=== PATIENT | male | born 1945 | race Caucasian/White ===

== ENCOUNTER 2016-12-08 05:47 | Inpatient (IN) | payer OTHER ==
--- NOTE | 2016-12-08 06:28 | EDM.PDOC ---
ED HPI GENERAL MEDICAL PROBLEM - General Chief Complaint: General Stated Complaint: ILL Time Seen by Provider: 12/08/16 06:21 - History of Present Illness INITIAL COMMENTS - FREE TEXT/NARRATIVE: HISTORY AND PHYSICAL: History of present illness: Patient is 71-year-old white male with history of coronary artery disease including multiple cardiac stents who presents with a concern of generalized weakness or last several days he's had decreased appetite denies nausea vomiting diarrhea denies nausea denies shortness of breath chest pain palpitations complains of halitosis that she noted 1 day. Review of systems: As per history of present illness and below otherwise all systems reviewed and negative. Past medical history: As per history of present illness and as reviewed below otherwise noncontributory. Surgical history: As per history of present illness and as reviewed below otherwise noncontributory. Social history: No reported history of drug or alcohol abuse. Family history: As per history of present illness and as reviewed below otherwise noncontributory. Physical exam: HEENT: Atraumatic, normocephalic, pupils reactive, negative for conjunctival pallor or scleral icterus, mucous membranes dry, throat clear, neck supple, nontender, trachea midline. Lungs: Clear to auscultation, breath sounds equal bilaterally, chest nontender. Heart: S1S2, regular, negative for clicks, rubs, or JVD. Abdomen: Soft, nondistended, nontender. Negative for masses or hepatosplenomegaly. Negative for costovertebral tenderness. Pelvis: Stable nontender. Genitourinary: Deferred. Rectal: Deferred. Extremities: Atraumatic, negative for cords or calf pain. Neurovascular unremarkable. Neuro: Awake, alert, oriented. Cranial nerves II through XII unremarkable. Cerebellum unremarkable. Motor and sensory unremarkable throughout. Exam nonfocal. Diagnostics: CBC CMP troponin UA ABG ammonia chest x-ray EKG Therapeutics: Normal saline monitor Impression: #1 generalized weakness #2 history coronary artery disease #3 generalized weakness Definitive disposition and diagnosis as appropriate pending reevaluation and review of above. - Related Data Allergies Allergy/AdvReac Type Severity Reaction Status Date / Time Penicillins Allergy Cannot Verified 12/08/16 05:52 Remember Home Meds: Home Meds Aspirin [[place] Aspirin] 1 tab PO DAILY 07/06/14 [History] Atenolol 1 tab PO DAILY 07/06/14 [History] Chlorthalidone 1 tab PO DAILY 07/06/14 [History] Ramipril [Altace] 1 tab PO DAILY 07/06/14 [History] atorvaSTATin [Lipitor] 1 tab PO DAILY 07/06/14 [History] metFORMIN HCl [Metformin HCl ER] 1 tab PO DAILY 07/06/14 [History] Celecoxib 200 mg PO DAILY 12/08/16 [History] Past Medical History HEENT History: Reports: None Cardiovascular History: Reports: High Cholesterol, Hypertension, OR, Stents Other Cardiovascular History: stents x 1 Respiratory History: Reports: None Gastrointestinal History: Reports: None Genitourinary History: Reports: None Musculoskeletal History: Reports: Arthritis Other Musculoskeletal History: hand/knee arthritis Other Neuro History: "undiagnosed mini absent siezure" Psychiatric History: Reports: None Endocrine/Metabolic History: Reports: None Oncologic (Cancer) History: Reports: None Dermatologic History: Reports: None - Infectious Disease History Infectious Disease History: Reports: None - Past Surgical History Male Surgical History: Reports: None Musculoskeletal Surgical History: Reports: None Social & Family History - Family History Family Medical History: Noncontributory HEENT: Reports: None Cardiac: Reports: Other (See Below) Other Cardiac Family History: father side Dermatologic: Reports: None Oncologic: Reports: Other (See Below) Other Oncologic Family History: Father of cancer - Tobacco Use Smoking Status *Q: Never Smoker - Alcohol Use Days Per Week of Alcohol Use: 0 - Recreational Drug Use Recreational Drug Use: No ED ROS GENERAL - Review of Systems Review Of Systems: ROS reveals no pertinent complaints other than HPI. ED EXAM, GENERAL - Physical Exam Exam: See Below (See dictation) Course - Vital Signs Last Recorded V/S: Last Vital Signs Temp 36.9 C 12/08/16 06:01 Pulse 104 H 12/08/16 06:01 Resp 20 12/08/16 06:01 BP 123/58 L 12/08/16 06:01 Pulse Ox 93 L 12/08/16 06:01 - Orders/Labs/Meds Orders: Active Orders 24 hr Category Date Time Status EKG Documentation Completion [RC] STAT Care 12/08/16 06:01 Active Chest 1V Frontal [CR] Stat Exams 12/08/16 06:01 Ordered Head wo Cont [CT] Stat Exams 12/08/16 06:01 Ordered Sodium Chloride 0.9% [Normal Saline] 1,000 ml Med 12/08/16 06:45 Active IV ASDIRECTED Medication Orders Sodium Chloride (Normal Saline) 1,000 mls @ 999 mls/hr IV ASDIRECTED CONNOR Last Admin: 12/08/16 06:40 Dose: 999 mls/hr Labs: Laboratory Tests 12/08/16 12/08/16 12/08/16 Range/Units 06:05 06:10 06:10 WBC 10.86 (4.0-11.0) K/uL RBC 4.33 L (4.50-5.90) M/uL Hgb 12.9 L (13.0-17.0) g/dL Hct 38.1 (38.0-50.0) % MCV 88.0 (80.0-98.0) fL MCH 29.8 (27.0-32.0) pg MCHC 33.9 (31.0-37.0) g/dL RDW Std Deviation 45.1 (28.0-62.0) fl RDW Coeff of [place] 14 (11.0-15.0) % Plt Count 168 (150-400) K/uL MPV 11.40 (7.40-12.00) fL Add Manual Diff YES Neutrophils % (Manual) 62 (48.0-80.0) % Band Neutrophils % 12 % Lymphocytes % (Manual) 21 (16.0-40.0) % Monocytes % (Manual) 5 (0.0-15.0) % Nucleated RBC % 0.0 /100WBC Absolute Seg Neuts 6.7 Band Neutrophils # 1.3 Lymphocytes # (Manual) 2.3 Monocytes # (Manual) 0.5 Nucleated RBCs # 0 K/uL ABG pH (7.35-7.45) ABG pCO2 (35-45) mmHG ABG pO2 (75-100) mmHG ABG HCO3 (22-26) mEq/L ABG Total CO2 ABG Base Excess (-2.0-2.0) Sodium 131 L (136-146) mmol/L Potassium 4.1 (3.5-5.1) mmol/L Chloride 98 (98-110) mmol/L Carbon Dioxide 19 L (21-31) mmol/L BUN 81 H (6.0-23.0) mg/dL Creatinine 2.4 H (0.6-1.5) mg/dL Est Cr Clr Drug Dosing 25.11 mL/min Estimated GFR (MDRD) 26.7 ml/min Glucose 202 H (60-110) mg/dL Calcium 9.0 (8.8-10.8) mg/dL Total Bilirubin 0.9 (0.1-1.5) mg/dL AST 42 H (5-40) IU/L ALT 56 H (8-54) IU/L Alkaline Phosphatase 55 (40-150) Ammonia (14-68) UG/DL CK-MB (CK-2) 1.0 (0-6.6) ng/ml Troponin I (0.0-0.29) NG/ML Total Protein 6.5 (6.0-8.0) g/dL Albumin 3.1 L (3.4-4.8) g/dL Globulin 3.4 (2.0-3.5) g/dL Albumin/Globulin Ratio 0.9 L (1.3-2.8) Urine Color DARK YELLOW Urine Appearance SLT CLOUDY Urine pH 5.0 (5.0-8.0) Ur Specific [place] 1.025 (1.001-1.035) Urine Protein TRACE (NEGATIVE) mg/dL Urine Glucose (UA) NEGATIVE (NEGATIVE) mg/dL Urine Ketones NEGATIVE (NEGATIVE) mg/dL Urine Occult Blood TRACE-INTACT (NEGATIVE) Urine Nitrite NEGATIVE (NEGATIVE) Urine Bilirubin NEGATIVE (NEGATIVE) Urine Urobilinogen 0.2 (<2.0) EU/dL Ur Leukocyte Esterase NEGATIVE (NEGATIVE) Urine RBC 2-4 (0-2/HPF) Urine WBC 0-3 (0-5/HPF) Ur Epithelial Cells RARE (NONE-FEW) Amorphous Sediment LIGHT (NEGATIVE) Urine Bacteria FEW (NEGATIVE) 12/08/16 12/08/16 12/08/16 Range/Units 06:10 06:10 06:47 WBC (4.0-11.0) K/uL RBC (4.50-5.90) M/uL Hgb (13.0-17.0) g/dL Hct (38.0-50.0) % MCV (80.0-98.0) fL MCH (27.0-32.0) pg MCHC (31.0-37.0) g/dL RDW Std Deviation (28.0-62.0) fl RDW Coeff of [place] (11.0-15.0) % Plt Count (150-400) K/uL MPV (7.40-12.00) fL Add Manual Diff Neutrophils % (Manual) (48.0-80.0) % Band Neutrophils % % Lymphocytes % (Manual) (16.0-40.0) % Monocytes % (Manual) (0.0-15.0) % Nucleated RBC % /100WBC Absolute Seg Neuts Band Neutrophils # Lymphocytes # (Manual) Monocytes # (Manual) Nucleated RBCs # K/uL ABG pH 7.517 H (7.35-7.45) ABG pCO2 23 L (35-45) mmHG ABG pO2 89 (75-100) mmHG ABG HCO3 18 L (22-26) mEq/L ABG Total CO2 16.6 ABG Base Excess -3.8 L (-2.0-2.0) Sodium (136-146) mmol/L Potassium (3.5-5.1) mmol/L Chloride (98-110) mmol/L Carbon Dioxide (21-31) mmol/L BUN (6.0-23.0) mg/dL Creatinine (0.6-1.5) mg/dL Est Cr Clr Drug Dosing mL/min Estimated GFR (MDRD) ml/min Glucose (60-110) mg/dL Calcium (8.8-10.8) mg/dL Total Bilirubin (0.1-1.5) mg/dL AST (5-40) IU/L ALT (8-54) IU/L Alkaline Phosphatase (40-150) Ammonia 54 (14-68) UG/DL CK-MB (CK-2) (0-6.6) ng/ml Troponin I < 0.10 (0.0-0.29) NG/ML Total Protein (6.0-8.0) g/dL Albumin (3.4-4.8) g/dL Globulin (2.0-3.5) g/dL Albumin/Globulin Ratio (1.3-2.8) Urine Color Urine Appearance Urine pH (5.0-8.0) Ur Specific [place] (1.001-1.035) Urine Protein (NEGATIVE) mg/dL Urine Glucose (UA) (NEGATIVE) mg/dL Urine Ketones (NEGATIVE) mg/dL Urine Occult Blood (NEGATIVE) Urine Nitrite (NEGATIVE) Urine Bilirubin (NEGATIVE) Urine Urobilinogen (<2.0) EU/dL Ur Leukocyte Esterase (NEGATIVE) Urine RBC (0-2/HPF) Urine WBC (0-5/HPF) Ur Epithelial Cells (NONE-FEW) Amorphous Sediment (NEGATIVE) Urine Bacteria (NEGATIVE) Meds: Medications Generic Name Dose Route Start Last Admin Trade Name Freq PRN Reason Stop Dose Admin Sodium Chloride 1,000 mls @ 999 mls/hr 12/08/16 06:45 12/08/16 06:40 Normal Saline IV 999 mls/hr ASDIRECTED CONNOR Administration Discontinued Medications Generic Name Dose Route Start Last Admin Trade Name Freq PRN Reason Stop Dose Admin Sodium Chloride 500 mls @ 999 mls/hr 12/08/16 06:30 Normal Saline IV .BOLUS CONNOR Departure - Departure Time of Disposition: 06:56 Disposition: Refer to Observation Condition: good Clinical Impression: Dehydration, Weakness - Discharge Information Forms: ED Department Discharge - My Orders Last 24 Hours: My Active Orders 12/08/16 06:01 EKG Documentation Completion [RC] STAT Chest 1V Frontal [CR] Stat Head wo Cont [CT] Stat 12/08/16 06:45 Sodium Chloride 0.9% [Normal Saline] 1,000 ml IV ASDIRECTED - Assessment/Plan Last 24 Hours: My Active Orders 12/08/16 06:01 EKG Documentation Completion [RC] STAT Chest 1V Frontal [CR] Stat Head wo Cont [CT] Stat 12/08/16 06:45 Sodium Chloride 0.9% [Normal Saline] 1,000 ml IV ASDIRECTED
[2016-12-08] MEDS ORDERED: Sodium Chloride 0.9% 500 ML IV SCH (06:30)
[2016-12-08] MEDS ORDERED: Sodium Chloride 0.9% 1,000 ML IV SCH (06:45)
[2016-12-08] MEDS ORDERED: Ondansetron 4 MG Tab.DIS PO PRN (09:01)
[2016-12-08] MEDS ORDERED: Morphine 2 MG/ML Syringe IVPUSH PRN (09:01)
[2016-12-08] MEDS ORDERED: Pantoprazole 80 MG in Sodium Chloride 0.9% 100 ML IV SCH (09:30)
[2016-12-08] MEDS: Sodium Chloride 0.9% 1,000 ML IV SCH ×2 (09:36→17:14)
--- NOTE | 2016-12-08 09:47 | PCM.HP ---
<Steve Whitingin - Last Filed: 12/08/16 09:41> H&P History of Present Illness - General Date of Service: 12/08/16 Admit Problem/Dx: Admission Diagnosis/Problem Admission Diagnosis/Problem Dehydration Source of Information: Patient, Family History Limitations: Reports: No Limitations - History of Present Illness Initial Comments - Free Text/Narative: 71 yo male presenting to ED on 12/08/16 with 5 days of generalized fatigue and abdominal pain with pmh of CAD with multiple stents and type II diabetes. Patient is accompanied by his who helps with the history. He states that he has felt more tired starting 5 days ago. He denies any fever, chills, but has had some night sweats. He has had some diffuse abdominal pain interemittently mostly localized in the epigastric region and right lower quadrant. He denies any overt GERD, dark tarry stools, bloody stool, or diarrhea. Has no chest pain, palpitations, shortness of breath or diarrhea. He has not ever had a colonscopy. He is allergic to penicillin. In ED Head CT in showed no acute intracranial disease and CXR was unremarkable. ECG showed no acute ischemic changes. Patient was admitted for generalized weakness and dehydration. - Related Data Allergies/Adverse Reactions: Allergies Allergy/AdvReac Type Severity Reaction Status Date / Time Penicillins Allergy Cannot Verified 12/08/16 05:52 Remember Home Medications: Home Meds Aspirin [[place] Aspirin] 81 mg PO DAILY 07/06/14 [History] Atenolol 25 mg PO DAILY 07/06/14 [History] Chlorthalidone 25 mg PO DAILY 07/06/14 [History] Ramipril [Altace] 10 mg PO DAILY 07/06/14 [History] atorvaSTATin [Lipitor] 10 mg PO DAILY 07/06/14 [History] metFORMIN HCl [Metformin HCl ER] 500 mg PO DAILY 07/06/14 [History] Celecoxib 200 mg PO DAILY 12/08/16 [History] Past Medical History HEENT History: Reports: None Cardiovascular History: Reports: High Cholesterol, Hypertension, [place], Stents Other Cardiovascular History: stents x 1 Respiratory History: Reports: None Gastrointestinal History: Reports: None Genitourinary History: Reports: None Musculoskeletal History: Reports: Arthritis Other Musculoskeletal History: hand/knee arthritis Other Neuro History: "undiagnosed mini absent siezure" Psychiatric History: Reports: None Endocrine/Metabolic History: Reports: None Oncologic (Cancer) History: Reports: None Dermatologic History: Reports: None - Infectious Disease History Infectious Disease History: Reports: None - Past Surgical History Male Surgical History: Reports: None Musculoskeletal Surgical History: Reports: None Social & Family History - Family History Family Medical History: Noncontributory HEENT: Reports: None Cardiac: Reports: Other (See Below) Other Cardiac Family History: father side Dermatologic: Reports: None Oncologic: Reports: Other (See Below) Other Oncologic Family History: Father of cancer - Tobacco Use Smoking Status *Q: Never Smoker - Alcohol Use Days Per Week of Alcohol Use: 0 - Recreational Drug Use Recreational Drug Use: No H&P Review of Systems - Review of Systems: Review Of Systems: See Below General: Reports: Weakness, Fatigue, Diaphoresis. Denies: Fever, Chills HEENT: Denies: Dysphasia, Headaches, Sinus Congestion Pulmonary: Denies: Shortness of Breath, Wheezing, Cough, Sputum Cardiovascular: Denies: Chest Pain, Palpitations, Edema Gastrointestinal: Reports: Abdominal Pain. Denies: Black Stool, Bloody Stool, Diarrhea Genitourinary: Denies: Dysuria, Hematuria Musculoskeletal: Denies: Neck Pain, Leg Pain Skin: Denies: Cyanosis Psychiatric: Reports: Confusion. Denies: Depression Neurological: Reports: Confusion. Denies: Dizziness, Headache Hematologic/Lymphatic: Denies: Anemia Exam - Exam Exam: See Below - Vital Signs Vital Signs: Last Vital Signs Temp 36.9 C 12/08/16 06:01 Pulse 96 12/08/16 07:44 Resp 16 12/08/16 07:44 BP 102/54 L 12/08/16 07:44 Pulse Ox 92 L 12/08/16 07:44 Weight: 106.413 kg - Exam Quality Assessment: DVT Prophylaxis General: Alert, Oriented, Cooperative HEENT: PERRLA, Hearing Intact, Mucosa Moist & Wilson, Nares Patent, Normal Nasal Septum, Posterior Pharynx Clear, Conjunctiva Clear, EOMI, EACs Clear, TMs Clear Neck: Supple, Trachea Midline, 2 Lungs: Clear to Auscultation, Normal Respiratory Effort Cardiovascular: Regular Rate, Regular Rhythm, Normal S1, Normal S2 Abdomen: Normal Bowel Sounds, Soft, Tenderness (epigatric and RLQ) Rectal (Males) Exam: Normal Exam, Normal Rectal Tone, Prostate Normal Back Exam: Normal Inspection, Full Range of Motion, NT Extremities: 3, Normal Inspection, 10 Peripheral Pulses: 2+: Posterior Tibial (L), Posterior Tibial (R), Dorsalis Pedis (L), Dorsalis Pedis (R) Skin: Warm, Dry, Intact Neurological: Cranial Nerves Intact, Reflexes Equal Bilateral Neuro Extensive - Mental Status: Alert, Oriented x3, Normal Mood/Affect, Normal Cognition Neuro Extensive - Motor, Sensory, Reflexes: CN II-XII Intact Psychiatric: Alert, Normal Affect, Normal Mood - Patient Data Result Diagrams: 12/08/16 06:10 12/08/16 06:10 Rah Results last 24 hrs: Microbiology 12/08/16 08:35 Stool Occult Blood (RAH) - Final Stool / Feces - Stool, Liquid NEGATIVE OCCULT BLOOD *Q Meaningful Use (ADM) - VTE *Q VTE Criteria *Q: - Stroke *Q Stroke Criteria *Q: - AMI *Q AMI Criteria *Q: - Problem List (1) Renal insufficiency SNOMED Code(s): 792800069, 815564603 ICD Code: N28.9 - DISORDER OF KIDNEY AND URETER, UNSPECIFIED Status: Acute Priority: High Current Visit: Yes (2) Abdominal pain SNOMED Code(s): 36526885 ICD Code: R10.9 - UNSPECIFIED ABDOMINAL PAIN Status: Acute Priority: High Current Visit: Yes Qualifiers: Abdominal location: right lower quadrant Qualified Code(s): R10.31 - Right lower quadrant pain (3) CAD (coronary artery disease) SNOMED Code(s): 57355307 ICD Code: I25.10 - ATHSCL HEART DISEASE OF [place] CORONARY ARTERY W/O ANG PCTRS Status: Chronic Priority: Medium Current Visit: Yes Qualifiers: Coronary Disease-Associated Artery/Lesion type: [place] artery [place] vs. transplanted heart: [place] heart Associated angina: without angina Qualified Code(s): I25.10 - Atherosclerotic heart disease of [place] coronary artery without angina pectoris (4) Diabetes SNOMED Code(s): 07123915 ICD Code: E11.9 - TYPE 2 DIABETES MELLITUS WITHOUT COMPLICATIONS Status: Chronic Priority: Low Current Visit: Yes Qualifiers: Diabetes mellitus type: type 2 Diabetes mellitus complication status: without complication Diabetes mellitus penitentiary insulin use: without rodent exterminator use Qualified Code(s): E11.9 - Type 2 diabetes mellitus without complications (5) Dehydration SNOMED Code(s): 18934826 ICD Code: E86.0 - DEHYDRATION Status: Acute Priority: High Current Visit: Yes (6) Weakness SNOMED Code(s): 37794964 ICD Code: R53.1 - WEAKNESS Status: Acute Priority: High Current Visit: Yes Problem List Initiated/Reviewed/Updated: Yes Orders Last 24hrs: Active Orders 24 hr Category Date Time Status Patient Status [ADT] Routine ADT 12/08/16 09:01 Ordered Antiembolic Devices [RC] PER UNIT ROUTINE Care 12/08/16 09:05 Ordered Oxygen Therapy [RC] PRN Care 12/08/16 09:01 Ordered Telemetry Monitoring [Cardiac Monitoring] [RC] . Care 12/08/16 08:30 Active DIRECTED Up With Assistance [RC] ASDIRECTED Care 12/08/16 09:01 Ordered VTE/DVT Education [RC] PER UNIT ROUTINE Care 12/08/16 09:01 Ordered Vital Signs [RC] Q4H Care 12/08/16 09:01 Ordered Nothing per Oral Now Diet [DIET] Diet 12/08/16 Lunch Ordered Abdomen Pelvis wo Cont [CT] Stat Exams 12/08/16 09:31 Ordered CBC WITH AUTO DIFF [HEME] DAILY Lab 12/09/16 05:00 Ordered CBC WITH AUTO DIFF [HEME] DAILY Lab 12/10/16 05:00 Ordered CBC WITH AUTO DIFF [HEME] DAILY Lab 12/11/16 05:00 Ordered CBC WITH AUTO DIFF [HEME] DAILY Lab 12/12/16 05:00 Ordered COMPREHENSIVE METABOLIC PN,CMP [CHEM] DAILY Lab 12/09/16 05:00 Ordered COMPREHENSIVE METABOLIC PN,CMP [CHEM] DAILY Lab 12/10/16 05:00 Ordered COMPREHENSIVE METABOLIC PN,CMP [CHEM] DAILY Lab 12/11/16 05:00 Ordered COMPREHENSIVE METABOLIC PN,CMP [CHEM] DAILY Lab 12/12/16 05:00 Ordered INFLUENZA A+B AG SCREEN [RM] Routine Lab 12/08/16 09:39 Uncollected MAGNESIUM [CHEM] Routine Lab 12/09/16 05:00 Ordered PHOSPHORUS [CHEM] Routine Lab 12/09/16 05:00 Ordered Acetaminophen [Tylenol] Med 12/08/16 09:01 Ordered 650 mg PO Q4H PRN Atenolol [Tenormin] Med 12/09/16 09:00 Ordered 1 tab PO DAILY Insulin Aspart [NovoLOG] Med 12/08/16 11:30 Ordered See Protocol SUBCUT TIDAC Morphine Med 12/08/16 09:01 Ordered 2 mg IVPUSH Q2H PRN Ondansetron [Zofran ODT] Med 12/08/16 09:01 Ordered 4 mg PO Q4H PRN Pantoprazole [ProTONIX IV] 80 mg Med 12/08/16 09:30 Ordered Sodium Chloride 0.9% [Normal Saline] 100 ml IV Q10H Ramipril [Altace] Med 12/09/16 09:00 Ordered 1 tab PO DAILY Sodium Chloride 0.9% @ 125 MLS/HR (1000ml) Med 12/08/16 09:15 Ordered Sodium Chloride 0.9% [Normal Saline] 1,000 ml IV ASDIRECTED atorvaSTATin [Lipitor] Med 12/09/16 09:00 Ordered 1 tab PO DAILY Sequential Compression Device [OM.PC] Per Unit Routine Oth 12/08/16 09:03 Ordered Resuscitation Status Routine Resus Stat 12/08/16 09:01 Ordered Medication Orders Acetaminophen (Tylenol) 650 mg PO Q4H PRN PRN Reason: Pain (Mild 1-3)/fever Atenolol (Tenormin) 25 mg PO DAILY [facility] Atorvastatin Calcium (Lipitor) 10 mg PO DAILY [facility] Sodium Chloride (Normal Saline) 1,000 mls @ 999 mls/hr IV ASDIRECTED [facility] Last Admin: 12/08/16 06:40 Dose: 999 mls/hr Sodium Chloride (Normal Saline) 1,000 mls @ 125 mls/hr IV ASDIRECTED [facility] Last Admin: 12/08/16 09:36 Dose: 125 mls/hr Pantoprazole Sodium 80 mg/ (Sodium Chloride) 100 mls @ 10 mls/hr IV Q10H [facility] Insulin Aspart (Novolog) 0 unit SUBCUT TIDAC [facility] PRN Reason: Protocol Morphine Sulfate (Morphine) 2 mg IVPUSH Q2H PRN PRN Reason: Pain (severe 7-10) Stop: 12/09/16 09:04 Ondansetron HCl (Zofran Odt) 4 mg PO Q4H PRN PRN Reason: nausea, able to take PO Ramipril (Altace) 10 mg PO DAILY [facility] Assessment/Plan Comment:: 71 yo male presenting to ED on 12/08/16 with 5 days of generalized fatigue and abdominal pain with pmh of CAD with multiple stents and type II diabetes. Renal Insufficiency: Cr.2.4 in ED much elevated from previous admission. BUN also elevated at 81. Most likely from dehydration. Hold metformin and place ISS Abdominal pain: Symptoms localized to epigastric and right lower quadrant. Will get stool studies no other family members with similar findings. Stool guaic neg Placed patient on PPI for GERD precautions and made NPO until get CT of abdomen as that is his main complaint. This still could be a viral gastroenteritis with severe dehydration. Continues to be afebrile will hold abx. CAD: Restart aspirin when acute bleed ruled out. Type II diabetes: ISS VTE: SCD until bleed ruled out. Dispo: 2-3 days. <Guido Montoya - Last Filed: 12/08/16 10:12> H&P History of Present Illness - General Admit Problem/Dx: Admission Diagnosis/Problem Admission Diagnosis/Problem Dehydration Exam - Vital Signs Vital Signs: Last Vital Signs Temp 36.9 C 12/08/16 06:01 Pulse 96 12/08/16 07:44 Resp 16 12/08/16 07:44 BP 102/54 L 12/08/16 07:44 Pulse Ox 92 L 12/08/16 07:44 - Patient Data Result Diagrams: 12/08/16 06:10 12/08/16 06:10 Rah Results last 24 hrs: Microbiology 12/08/16 08:35 Stool Occult Blood (RAH) - Final Stool / Feces - Stool, Liquid NEGATIVE OCCULT BLOOD *Q Meaningful Use (ADM) - VTE *Q VTE Criteria *Q: - Stroke *Q Stroke Criteria *Q: - AMI *Q AMI Criteria *Q: Orders Last 24hrs: Active Orders 24 hr Category Date Time Status Patient Status [ADT] Routine ADT 12/08/16 09:01 Active Antiembolic Devices [RC] PER UNIT ROUTINE Care 12/08/16 09:05 Active Oxygen Therapy [RC] PRN Care 12/08/16 09:01 Active Telemetry Monitoring [Cardiac Monitoring] [RC] . Care 12/08/16 08:30 Active DIRECTED Up With Assistance [RC] ASDIRECTED Care 12/08/16 09:01 Active VTE/DVT Education [RC] PER UNIT ROUTINE Care 12/08/16 09:01 Active Vital Signs [RC] Q4H Care 12/08/16 09:01 Active Nothing per Oral Now Diet [DIET] Diet 12/08/16 Lunch Active Abdomen Pelvis wo Cont [CT] Stat Exams 12/08/16 09:31 Taken CBC WITH AUTO DIFF [HEME] DAILY Lab 12/09/16 05:00 Ordered CBC WITH AUTO DIFF [HEME] DAILY Lab 12/10/16 05:00 Ordered CBC WITH AUTO DIFF [HEME] DAILY Lab 12/11/16 05:00 Ordered CBC WITH AUTO DIFF [HEME] DAILY Lab 12/12/16 05:00 Ordered COMPREHENSIVE METABOLIC PN,CMP [CHEM] DAILY Lab 12/09/16 05:00 Ordered COMPREHENSIVE METABOLIC PN,CMP [CHEM] DAILY Lab 12/10/16 05:00 Ordered COMPREHENSIVE METABOLIC PN,CMP [CHEM] DAILY Lab 12/11/16 05:00 Ordered COMPREHENSIVE METABOLIC PN,CMP [CHEM] DAILY Lab 12/12/16 05:00 Ordered CULTURE STOOL + CAMPY+SHIGATOX [RM] Routine Lab 12/08/16 08:35 Received INFLUENZA A+B AG SCREEN [RM] Routine Lab 12/08/16 09:39 Uncollected MAGNESIUM [CHEM] Routine Lab 12/09/16 05:00 Ordered PHOSPHORUS [CHEM] Routine Lab 12/09/16 05:00 Ordered Acetaminophen [Tylenol] Med 12/08/16 09:01 Active 650 mg PO Q4H PRN Atenolol [Tenormin] Med 12/09/16 09:00 Active 25 mg PO DAILY Insulin Aspart [NovoLOG] Med 12/08/16 11:30 Active See Protocol SUBCUT TIDAC Morphine Med 12/08/16 09:01 Active 2 mg IVPUSH Q2H PRN Ondansetron [Zofran ODT] Med 12/08/16 09:01 Active 4 mg PO Q4H PRN Pantoprazole [ProTONIX IV] 80 mg Med 12/08/16 09:30 Active Sodium Chloride 0.9% [Normal Saline] 100 ml IV Q10H Ramipril [Altace] Med 12/09/16 09:00 Active 10 mg PO DAILY Sodium Chloride 0.9% [Normal Saline] 1,000 ml Med 12/08/16 09:15 Active IV ASDIRECTED atorvaSTATin [Lipitor] Med 12/09/16 09:00 Active 10 mg PO DAILY Sequential Compression Device [OM.PC] Per Unit Routine Oth 12/08/16 09:03 Ordered Resuscitation Status Routine Resus Stat 12/08/16 09:01 Ordered Medication Orders Acetaminophen (Tylenol) 650 mg PO Q4H PRN PRN Reason: Pain (Mild 1-3)/fever Atenolol (Tenormin) 25 mg PO DAILY [facility] Atorvastatin Calcium (Lipitor) 10 mg PO DAILY [facility] Sodium Chloride (Normal Saline) 1,000 mls @ 999 mls/hr IV ASDIRECTED [facility] Last Admin: 12/08/16 06:40 Dose: 999 mls/hr Sodium Chloride (Normal Saline) 1,000 mls @ 125 mls/hr IV ASDIRECTED [facility] Last Admin: 12/08/16 09:36 Dose: 125 mls/hr Pantoprazole Sodium 80 mg/ (Sodium Chloride) 100 mls @ 10 mls/hr IV Q10H [facility] Last Admin: 12/08/16 10:03 Dose: 10 mls/hr Insulin Aspart (Novolog) 0 unit SUBCUT TIDAC [facility] PRN Reason: Protocol Morphine Sulfate (Morphine) 2 mg IVPUSH Q2H PRN PRN Reason: Pain (severe 7-10) Stop: 12/09/16 09:04 Ondansetron HCl (Zofran Odt) 4 mg PO Q4H PRN PRN Reason: nausea, able to take PO Ramipril (Altace) 10 mg PO DAILY [facility] Assessment/Plan Comment:: Seen and agree.
--- NOTE | 2016-12-08 10:24 | CT ---
CT of the abdomen and pelvis without contrast. HISTORY: Pain TECHNIQUE: Axial CT images were obtained of the abdomen and pelvis without contrast. Coronal and sag ittal reconstructions obtained. FINDINGS: The lung bases are clear, no pleural effusion. The liver, spleen, adrenal glands, and pancreas appear unremarkable for noncontrast examination. The gallbladder appears normal. There is no bulky retroperitoneal lymphadenopathy. No abdominal ascite s. There is a minimal kendrick mesentery appearance to the abdomen. There are no calcifications noted within the kidneys or along the courses of the ureters bilaterally . The large and small bowel are normal in caliber without evidence of obstruction. The appendix appear s normal. Mild diverticulosis without evidence of diverticulitis. There is no bulky pelvic lymphaden opathy. No free fluid. No free air. There is mild symmetric stranding within the pelvis. The urinary bladder appears normal. The prostate is enlarged. The visualized osseous structures appear normal. Anterior bridging osteophytes are noted within the SI joints. Degenerative changes are noted within the lumbar spine. Grade 1 anterolisthesis of L5 on S1 with chronic spondylolysis IMPRESSION: 1. No acute findings within the abdomen or pelvis. 2. Severe prostatomegaly. 3. Mild diverticulosis without evidence of diverticulitis.
--- NOTE | 2016-12-08 10:32 | CR ---
EXAM DATE: 12/08/16 PATIENT'S AGE: 71 Patient: GIBRAN POLANCO Facility: [place], [place] Site . Site : 1945 Study: XRay Chest [id number]/6/2017 7:10:58 AM Ordering Physician: Doctor Friedman Final Report: INDICATION: Dizziness. Weakness. Technique: AP portable chest x-ray. Comparison: Chest x-ray 10/03/2015. Findings: Heart size upper limits of normal. No focal infiltrate or consolidation either lung. Chest otherwise negative without acute disease. Dictated by Khoa Fink MD @ Dec 08 2016 7:16AM (Electronic Signature) Report Signed by Proxy. RENE
--- NOTE | 2016-12-08 10:33 | CT ---
EXAM DATE: 12/08/16 PATIENT'S AGE: 71 Patient: GIBRAN POLANCO Facility: [place], [place] Site . Site : 1945 Study: CT Head [id number]/[id number] 7:16:17 AM Ordering Physician: Doctor Friedman Final Report: INDICATION: Dizziness. Weakness. Technique: CT head without IV contrast. Comparison: Head CT 07/06/2014. Findings: Expansile mixed lytic and sclerotic lesion in the supraorbital right frontal bone stable and indeterminate. Moderate vascular calcifications. No intracranial hemorrhage, edema, or mass-effect. Mild to moderate patchy low density in the white matter of both cerebral hemispheres slightly more prominent and although nonspecific consistent with small vessel ischemic disease. Few tiny old lacunar infarcts seen in the brain a few of which may be new. Mild cerebral atrophy. Remainder negative. Impression: 1. No acute intracranial disease. Chronic intracranial disease some which has mildly progressed since 2014. 2. Moderate-sized expansile mixed lytic and sclerotic indeterminate lesion in the right supraorbital calvarium stable. Please note that all CT scans at this facility use dose modulation, iterative reconstruction, and/or weight-based dosing when appropriate to reduce radiation dose to as low as reasonably achievable. Dictated by Khoa Fink MD @ Dec 08 2016 7:23AM (Electronic Signature) Report Signed by Proxy. RENE
[2016-12-08] MEDS: Insulin Aspart 100 Units/ML 3 ML Pen SUBCUT SCH ×2 (12:16→16:45)
[2016-12-08] MEDS: Acetaminophen 325 MG Tab PO PRN (19:52)
[2016-12-09] MEDS: Sodium Chloride 0.9% 1,000 ML IV SCH ×4 (00:40→23:44)
[2016-12-09] MEDS: Insulin Aspart 100 Units/ML 3 ML Pen SUBCUT SCH ×3 (07:23→16:41)
--- NOTE | 2016-12-09 07:50 | PCM.PN ---
<Regina Bright M - Last Filed: 12/09/16 10:45> - General Info Date of Service: 12/09/16 Admission Dx/Problem (Free Text): Admission Diagnosis/Problem Admission Diagnosis/Problem Dehydration Subjective Update: Patient laying in bed resting eyes. Reports abdominal pain is much better, had a loose stool this am. He reports voiding a lot last night, smaller amounts. Doesn't feel like it is hard to get a stream going, but sometimes it is. No concerns today. No chest pain or SOB. Functional Status: Reports: pain controlled, tolerating diet, ambulating, urinating - Review of Systems General: Reports: Malaise (has improved greatly). Denies: Fever HEENT: Reports: no symptoms. Denies: ear pain, sinus congestion, sore throat, visual changes Pulmonary: Reports: no symptoms. Denies: shortness of breath, cough, sputum Cardiovascular: Reports: No Symptoms. Denies: Chest Pain, Edema Gastrointestinal: Reports: Abdominal pain (tenderness, but improved.), Diarrhea (loose stools), Flatus. Denies: Decreased appetite, Melena, Nausea, Vomiting Genitourinary: Reports: no symptoms. Denies: dysuria, frequency, burning Neurological: Reports: No Symptoms Psychiatric: Reports: no symptoms - Patient Data Vitals - most recent: Last Vital Signs Temp 99.7 F 12/09/16 04:00 Pulse 99 12/09/16 04:00 Resp 20 12/09/16 04:00 BP 128/69 12/09/16 04:00 Pulse Ox 95 12/09/16 04:00 Weight - most recent: 106.413 kg I&O - last 24 hours: Intake & Output 12/08/16 12/09/16 12/09/16 22:59 06:59 14:59 Intake Total 1700 2950 Output Total 175 450 Balance 1525 2500 Lab Results last 24 hrs: Laboratory Results - last 24 hr 12/08/16 12/08/16 12/09/16 Range/Units 12:13 16:23 04:49 WBC 9.69 (4.0-11.0) K/uL RBC 3.76 L (4.50-5.90) M/uL Hgb 11.1 L (13.0-17.0) g/dL Hct 32.8 L (38.0-50.0) % MCV 87.2 (80.0-98.0) fL MCH 29.5 (27.0-32.0) pg MCHC 33.8 (31.0-37.0) g/dL RDW Std Deviation 45.1 (28.0-62.0) fl RDW Coeff of [place] 14 (11.0-15.0) % Plt Count 145 L (150-400) K/uL MPV 11.30 (7.40-12.00) fL Add Manual Diff YES Neutrophils % (Manual) 75 (48.0-80.0) % Band Neutrophils % 8 % Lymphocytes % (Manual) 4 L (16.0-40.0) % Monocytes % (Manual) 13 (0.0-15.0) % Nucleated RBC % 0.0 /100WBC Absolute Seg Neuts 7.3 Band Neutrophils # 0.8 Lymphocytes # (Manual) 0.4 Monocytes # (Manual) 1.3 Nucleated RBCs # 0 K/uL Sodium (136-146) mmol/L Potassium (3.5-5.1) mmol/L Chloride (98-110) mmol/L Carbon Dioxide (21-31) mmol/L BUN (6.0-23.0) mg/dL Creatinine (0.6-1.5) mg/dL Est Cr Clr Drug Dosing mL/min Estimated GFR (MDRD) ml/min Glucose (60-110) mg/dL POC Glucose 178 H 148 H (60-110) mg/dL Calcium (8.8-10.8) mg/dL Phosphorus (2.4-4.7) mg/dL Magnesium (1.5-2.3) mEq/L Total Bilirubin (0.1-1.5) mg/dL AST (5-40) IU/L ALT (8-54) IU/L Alkaline Phosphatase (40-150) Total Protein (6.0-8.0) g/dL Albumin (3.4-4.8) g/dL Globulin (2.0-3.5) g/dL Albumin/Globulin Ratio (1.3-2.8) 12/09/16 12/09/16 Range/Units 04:49 06:28 WBC (4.0-11.0) K/uL RBC (4.50-5.90) M/uL Hgb (13.0-17.0) g/dL Hct (38.0-50.0) % MCV (80.0-98.0) fL MCH (27.0-32.0) pg MCHC (31.0-37.0) g/dL RDW Std Deviation (28.0-62.0) fl RDW Coeff of [place] (11.0-15.0) % Plt Count (150-400) K/uL MPV (7.40-12.00) fL Add Manual Diff Neutrophils % (Manual) (48.0-80.0) % Band Neutrophils % % Lymphocytes % (Manual) (16.0-40.0) % Monocytes % (Manual) (0.0-15.0) % Nucleated RBC % /100WBC Absolute Seg Neuts Band Neutrophils # Lymphocytes # (Manual) Monocytes # (Manual) Nucleated RBCs # K/uL Sodium 133 L (136-146) mmol/L Potassium 4.0 (3.5-5.1) mmol/L Chloride 104 (98-110) mmol/L Carbon Dioxide 18 L (21-31) mmol/L BUN 93 H (6.0-23.0) mg/dL Creatinine 2.4 H (0.6-1.5) mg/dL Est Cr Clr Drug Dosing 25.23 mL/min Estimated GFR (MDRD) 26.7 ml/min Glucose 169 H (60-110) mg/dL POC Glucose 155 H (60-110) mg/dL Calcium 7.6 L (8.8-10.8) mg/dL Phosphorus 5.2 H (2.4-4.7) mg/dL Magnesium 1.9 (1.5-2.3) mEq/L Total Bilirubin 0.7 (0.1-1.5) mg/dL AST 28 (5-40) IU/L ALT 44 (8-54) IU/L Alkaline Phosphatase 43 (40-150) Total Protein 4.5 L (6.0-8.0) g/dL Albumin 2.4 L (3.4-4.8) g/dL Globulin 2.1 (2.0-3.5) g/dL Albumin/Globulin Ratio 1.1 L (1.3-2.8) Rah Results last 24 hrs: Microbiology 12/08/16 08:35 Campylobacter Antigen Assay - Final Stool / Feces - Stool, Liquid NEGATIVE CAMPYLOBACTER AG 12/08/16 09:59 Influenza Type A Antigen Screen - Final Nasopharyngeal Swab - Nare, Right NEGATIVE INFLUENZA A VIRUS AG Influenza Type B Antigen Screen - Final NEGATIVE INFLUENZA B VIRUS AG 12/08/16 08:35 Stool Occult Blood (RAH) - Final Stool / Feces - Stool, Liquid NEGATIVE OCCULT BLOOD Med Orders - Current: Current Medications Acetaminophen (Tylenol) 650 mg PO Q4H PRN PRN Reason: Pain (Mild 1-3)/fever Last Admin: 12/08/16 19:52 Dose: 650 mg Aspirin (Aspirin) 81 mg PO DAILY [facility] Atenolol (Tenormin) 25 mg PO DAILY [facility] Atorvastatin Calcium (Lipitor) 10 mg PO DAILY [facility] Sodium Chloride (Normal Saline) 1,000 mls @ 999 mls/hr IV ASDIRECTED [facility] Last Admin: 12/08/16 06:40 Dose: 999 mls/hr Sodium Chloride (Normal Saline) 1,000 mls @ 125 mls/hr IV ASDIRECTED [facility] Last Admin: 12/09/16 00:40 Dose: 125 mls/hr Insulin Aspart (Novolog) 0 unit SUBCUT TIDAC [facility] PRN Reason: Protocol Last Admin: 12/09/16 07:23 Dose: 1 unit Morphine Sulfate (Morphine) 2 mg IVPUSH Q2H PRN PRN Reason: Pain (severe 7-10) Stop: 12/09/16 09:04 Ondansetron HCl (Zofran Odt) 4 mg PO Q4H PRN PRN Reason: nausea, able to take PO Discontinued Medications Sodium Chloride (Normal Saline) 500 mls @ 999 mls/hr IV .BOLUS [facility] Pantoprazole Sodium 80 mg/ (Sodium Chloride) 100 mls @ 10 mls/hr IV Q10H [facility] Last Admin: 12/08/16 10:03 Dose: 10 mls/hr Ramipril (Altace) 10 mg PO DAILY [facility] - Exam General: alert, oriented, cooperative, no acute distress Lungs: Clear to auscultation, Normal respiratory effort Cardiovascular: Regular Rate, Regular Rhythm Abdomen: bowel sounds present, soft, no distension, tenderness (scant tenderness epigastric) Extremities: no edema, normal pulses, no tenderness/swelling Neurological: no new focal deficit Psy/Mental Status: alert, normal affect, normal mood - Problem List & Annotations (1) Abdominal pain SNOMED Code(s): 43648186 Code(s): R10.9 - UNSPECIFIED ABDOMINAL PAIN Status: Acute Priority: High Current Visit: Yes Qualifiers: Abdominal location: right lower quadrant Qualified Code(s): R10.31 - Right lower quadrant pain (2) Dehydration SNOMED Code(s): 43487973 Code(s): E86.0 - DEHYDRATION Status: Acute Priority: High Current Visit : Yes (3) Renal insufficiency SNOMED Code(s): 946756290, 844631432 Code(s): N28.9 - DISORDER OF KIDNEY AND URETER, UNSPECIFIED Status: Acute Priority: High Current Visit: Yes (4) Weakness SNOMED Code(s): 97020298 Code(s): R53.1 - WEAKNESS Status: Acute Priority: High Current Visit: Yes (5) Diabetes mellitus SNOMED Code(s): 24078049 Code(s): E11.9 - TYPE 2 DIABETES MELLITUS WITHOUT COMPLICATIONS Status: Chronic Current Visit: Yes Qualifiers: Diabetes mellitus type: type 2 Diabetes mellitus complication status: without complication Diabetes mellitus termite technician insulin use: without termite technician use Qualified Code(s): E11.9 - Type 2 diabetes mellitus without complications (6) CAD (coronary artery disease) SNOMED Code(s): 99821178 Code(s): I25.10 - ATHSCL HEART DISEASE OF [place] CORONARY ARTERY W/O ANG PCTRS Status: Chronic Priority: Medium Current Visit: Yes Qualifiers: Coronary Disease-Associated Artery/Lesion type: [place] artery [place] vs. transplanted heart: [place] heart Associated angina: without angina Qualified Code(s): I25.10 - Atherosclerotic heart disease of [place] coronary artery without angina pectoris - Problem List Review Problem List Initiated/Reviewed/Updated: Yes - My Orders Last 24 Hours: My Active Orders 12/09/16 07:47 Intake and Output Strict [RC] ASDIRECTED - Plan Plan:: 71 yo male admitted for dehydration, generalized fatigue and abdominal pain with pmh of CAD with multiple stents and type II diabetes. 1. Renal Insufficiency: Cr remains 2.4. Will check pre and post void residuals due to prostatomegaly noted on CT. BUN 93 today. Will continue to monitor. Continue IVF and add strict I/O monitoring. Home medications show Celebrex along with an JUAN, could have increased insult along with dehydration. Will hold both for now. 2. Abdominal pain: Stool studies negative, hemoccult neg. CT negative. Question viral gastroenteritis with severe dehydration. No Leukocytosis. Was febrile overnight, 101.1 F, BC obtained. Will monitor. 3. CAD: Continue Aspirin. 4. DM Type II: Holding Metformin. Continue Novolog SSI. BS stable. 5. HTN: Continue Atenolol. Hold Ramipril secondary to renal insufficiency. 6. Generalized weakness: Will consult PT to evaluate and treat VTE prophylaxis: Heparin. Dispo: 2-3 days. <Guido Montoya - Last Filed: 12/09/16 11:44> - Patient Data Vitals - most recent: Last Vital Signs Temp 37.4 C 12/09/16 08:00 Pulse 103 H 12/09/16 08:25 Resp 22 H 12/09/16 08:00 BP 101/55 L 12/09/16 08:25 Pulse Ox 93 L 12/09/16 09:01 I&O - last 24 hours: Intake & Output 12/08/16 12/09/16 12/09/16 22:59 06:59 14:59 Intake Total 1700 2950 1052 Output Total 175 450 250 Balance 1525 2500 802 Lab Results last 24 hrs: Laboratory Results - last 24 hr 12/08/16 12/08/16 12/09/16 Range/Units 12:13 16:23 04:49 WBC 9.69 (4.0-11.0) K/uL RBC 3.76 L (4.50-5.90) M/uL Hgb 11.1 L (13.0-17.0) g/dL Hct 32.8 L (38.0-50.0) % MCV 87.2 (80.0-98.0) fL MCH 29.5 (27.0-32.0) pg MCHC 33.8 (31.0-37.0) g/dL RDW Std Deviation 45.1 (28.0-62.0) fl RDW Coeff of [place] 14 (11.0-15.0) % Plt Count 145 L (150-400) K/uL MPV 11.30 (7.40-12.00) fL Add Manual Diff YES Neutrophils % (Manual) 75 (48.0-80.0) % Band Neutrophils % 8 % Lymphocytes % (Manual) 4 L (16.0-40.0) % Monocytes % (Manual) 13 (0.0-15.0) % Nucleated RBC % 0.0 /100WBC Absolute Seg Neuts 7.3 Band Neutrophils # 0.8 Lymphocytes # (Manual) 0.4 Monocytes # (Manual) 1.3 Nucleated RBCs # 0 K/uL Sodium (136-146) mmol/L Potassium (3.5-5.1) mmol/L Chloride (98-110) mmol/L Carbon Dioxide (21-31) mmol/L BUN (6.0-23.0) mg/dL Creatinine (0.6-1.5) mg/dL Est Cr Clr Drug Dosing mL/min Estimated GFR (MDRD) ml/min Glucose (60-110) mg/dL POC Glucose 178 H 148 H (60-110) mg/dL Calcium (8.8-10.8) mg/dL Phosphorus (2.4-4.7) mg/dL Magnesium (1.5-2.3) mEq/L Total Bilirubin (0.1-1.5) mg/dL AST (5-40) IU/L ALT (8-54) IU/L Alkaline Phosphatase (40-150) Total Protein (6.0-8.0) g/dL Albumin (3.4-4.8) g/dL Globulin (2.0-3.5) g/dL Albumin/Globulin Ratio (1.3-2.8) 12/09/16 12/09/16 Range/Units 04:49 06:28 WBC (4.0-11.0) K/uL RBC (4.50-5.90) M/uL Hgb (13.0-17.0) g/dL Hct (38.0-50.0) % MCV (80.0-98.0) fL MCH (27.0-32.0) pg MCHC (31.0-37.0) g/dL RDW Std Deviation (28.0-62.0) fl RDW Coeff of [place] (11.0-15.0) % Plt Count (150-400) K/uL MPV (7.40-12.00) fL Add Manual Diff Neutrophils % (Manual) (48.0-80.0) % Band Neutrophils % % Lymphocytes % (Manual) (16.0-40.0) % Monocytes % (Manual) (0.0-15.0) % Nucleated RBC % /100WBC Absolute Seg Neuts Band Neutrophils # Lymphocytes # (Manual) Monocytes # (Manual) Nucleated RBCs # K/uL Sodium 133 L (136-146) mmol/L Potassium 4.0 (3.5-5.1) mmol/L Chloride 104 (98-110) mmol/L Carbon Dioxide 18 L (21-31) mmol/L BUN 93 H (6.0-23.0) mg/dL Creatinine 2.4 H (0.6-1.5) mg/dL Est Cr Clr Drug Dosing 25.23 mL/min Estimated GFR (MDRD) 26.7 ml/min Glucose 169 H (60-110) mg/dL POC Glucose 155 H (60-110) mg/dL Calcium 7.6 L (8.8-10.8) mg/dL Phosphorus 5.2 H (2.4-4.7) mg/dL Magnesium 1.9 (1.5-2.3) mEq/L Total Bilirubin 0.7 (0.1-1.5) mg/dL AST 28 (5-40) IU/L ALT 44 (8-54) IU/L Alkaline Phosphatase 43 (40-150) Total Protein 4.5 L (6.0-8.0) g/dL Albumin 2.4 L (3.4-4.8) g/dL Globulin 2.1 (2.0-3.5) g/dL Albumin/Globulin Ratio 1.1 L (1.3-2.8) Rah Results last 24 hrs: Microbiology 12/08/16 08:35 Campylobacter Antigen Assay - Final Stool / Feces - Stool, Liquid NEGATIVE CAMPYLOBACTER AG - Final NEGATIVE FOR SHIGA TOXIN 1 - Final NEGATIVE FOR SHIGA TOXIN 2 12/08/16 09:59 Influenza Type A Antigen Screen - Final Nasopharyngeal Swab - Nare, Right NEGATIVE INFLUENZA A VIRUS AG Influenza Type B Antigen Screen - Final NEGATIVE INFLUENZA B VIRUS AG 12/08/16 08:35 Stool Occult Blood (RAH) - Final Stool / Feces - Stool, Liquid NEGATIVE OCCULT BLOOD Med Orders - Current: Current Medications Acetaminophen (Tylenol) 650 mg PO Q4H PRN PRN Reason: Pain (Mild 1-3)/fever Last Admin: 12/08/16 19:52 Dose: 650 mg Aspirin (Aspirin) 81 mg PO DAILY [facility] Last Admin: 12/09/16 08:25 Dose: 81 mg Atenolol (Tenormin) 25 mg PO DAILY [facility] Last Admin: 12/09/16 08:25 Dose: 25 mg Atorvastatin Calcium (Lipitor) 10 mg PO DAILY [facility] Last Admin: 12/09/16 08:26 Dose: 10 mg Heparin Sodium (Porcine) (Heparin Sodium) 5,000 units SUBCUT Q12HR [facility] Last Admin: 12/09/16 09:28 Dose: 5,000 units Sodium Chloride (Normal Saline) 1,000 mls @ 125 mls/hr IV ASDIRECTED [facility] Last Admin: 12/09/16 08:54 Dose: 125 mls/hr Insulin Aspart (Novolog) 0 unit SUBCUT TIDAC [facility] PRN Reason: Protocol Last Admin: 12/09/16 07:23 Dose: 1 unit Ondansetron HCl (Zofran Odt) 4 mg PO Q4H PRN PRN Reason: nausea, able to take PO Discontinued Medications Sodium Chloride (Normal Saline) 500 mls @ 999 mls/hr IV .BOLUS [facility] Sodium Chloride (Normal Saline) 1,000 mls @ 999 mls/hr IV ASDIRECTED [facility] Last Admin: 12/08/16 06:40 Dose: 999 mls/hr Pantoprazole Sodium 80 mg/ (Sodium Chloride) 100 mls @ 10 mls/hr IV Q10H [facility] Last Admin: 12/08/16 10:03 Dose: 10 mls/hr Morphine Sulfate (Morphine) 2 mg IVPUSH Q2H PRN PRN Reason: Pain (severe 7-10) Stop: 12/09/16 09:04 Ramipril (Altace) 10 mg PO DAILY [facility] - My Orders Last 24 Hours: My Active Orders 12/08/16 21:00 Blood Culture x2 Reflex Set [OM.PC] Stat 12/08/16 21:23 CULTURE BLOOD [BC] Stat 12/08/16 21:31 CULTURE BLOOD [BC] Stat 12/08/16 23:05 CULTURE URINE [RM] Routine - Plan Plan:: Concerning that creat hasn't decreased and BUN up, despite IVF's. * Urine eos * FENA * CK Huge prostate on CT and hx of prostastism sxs (No hyrdronephrosis on CT): Flomax daily He can go home tomorrow if renal function stable or better but should probable get Nephrology consult as outpt.
[2016-12-09] MEDS: Aspirin 81 MG Tab.Chew PO SCH (08:25)
[2016-12-09] MEDS: atorvaSTATin 10 MG Tab PO SCH (08:26)
[2016-12-09] MEDS ORDERED: Atenolol 25 MG Tab PO SCH (09:00)
[2016-12-09] MEDS: Heparin Sodium 5,000 Units/ML Vial SUBCUT SCH ×2 (09:28→20:36)
[2016-12-09] MEDS ORDERED: Tamsulosin 0.4 MG Cap.ER PO ONE (11:42)
[2016-12-09] MEDS: Acetaminophen 325 MG Tab PO PRN (20:33)
[2016-12-09] MEDS ORDERED: Tamsulosin 0.4 MG Cap.ER PO SCH (21:00)
[2016-12-10] MEDS ORDERED: Sodium Chloride 0.9% 250 ML IV SCH (00:15)
[2016-12-10 05:12] LABS: CHLORIDE,CL 103 mmol/L (98-110); SODIUM,NA 131 mmol/L (136-146)
[2016-12-10] MEDS: Insulin Aspart 100 Units/ML 3 ML Pen SUBCUT SCH ×2 (07:06→12:19)
[2016-12-10] MEDS: Sodium Chloride 0.9% 1,000 ML IV SCH (08:38)
[2016-12-10] MEDS: atorvaSTATin 10 MG Tab PO SCH (08:42)
[2016-12-10] MEDS: Heparin Sodium 5,000 Units/ML Vial SUBCUT SCH (08:42)
[2016-12-10] MEDS: Aspirin 81 MG Tab.Chew PO SCH (08:42)
[2016-12-10 12:51] VITALS: BP 84/47
--- NOTE | 2016-12-10 13:55 | US ---
EXAMINATION: Renal and renal artery duplex ultrasound HISTORY: Acute renal failure COMPARISON: None TECHNIQUE: Grayscale, color Doppler, and spectral Doppler images obtained. FINDINGS: The right kidney measures at least 11.1 cm and the left kidney measures at least 12.6 cm p ole-to-pole without evidence of hydronephrosis. There is normal color Doppler flow bilaterally. The renal cortical echotexture appears grossly normal however fine detail is obscured secondary to body habitus. The urinary bladder is minimally filled. Bilateral urine jets are noted. Velocity within the mid aorta is 100 cm/s. Velocities within the origin, proximal, mid, and distal r ight renal arteries are 90, 81, 107, and 89 cm/s respectively. Velocities within the origin, proxima l, mid, and distal left renal arteries are 78, 73, 108, and 1 16 cm/s respectively. No elevated RAR values. No pars to us waveforms. IMPRESSION: 1. Grossly unremarkable renal ultrasound without evidence of hydronephrosis. 2. No significantly elevated renal artery velocities to suggest renal artery stenosis. 3. Overall findings have is obscured secondary to body habitus.
[2016-12-10] MEDS ORDERED: Levofloxacin/Dextrose 5%-Water 750 MG in Premix Bag 1 BAG IV ONE (14:00)
--- NOTE | 2016-12-10 15:17 | PCM.DCSUM1 ---
Addendum entered and electronically signed by Pasquale Whiting MD 12/10/16 15:34 : Discharge Summary - Hospital Course Brief History: Patient presented to ED via personal vehicle with cc of feeling more tired with some dizziness for the previous 5 days. He denied any fever, chills, head or neck pain but did have some night sweats. He initally had some diffuse abdominal pain interemittently mostly localized in the epigastric region and right lower quadrant. He denied any chest pain, palpitations, syncope, or focal neurologic deficits in ED. He had some diarrhea when he first became ill but this had resolved by time he presented to ED. Patient had a pmh of CAD with multiple stents and type II diabetes. His home medications were Metformin 500 daily, Lipitor 10 mg daily, Ramipril 10 mg daily, Clorthalidone 25 mg daily, atenolol 25 mg daily, Celecoxib 200 mg daily, and aspirin 81 mg daily - Discharge Data Discharge Date: 12/10/16 Discharge Disposition: DC/Tfer to Other 70 Condition: Fair - Discharge Diagnosis/Problem(s) (1) Renal insufficiency SNOMED Code(s): 515962909, 298821377 ICD Code: N28.9 - DISORDER OF KIDNEY AND URETER, UNSPECIFIED Status: Acute Priority: High Current Visit: Yes (2) Abdominal pain SNOMED Code(s): 23971040 ICD Code: R10.9 - UNSPECIFIED ABDOMINAL PAIN Status: Resolved Priority: Medium Current Visit: Yes Qualifiers: Abdominal location: right lower quadrant Qualified Code(s): R10.31 - Right lower quadrant pain (3) CAD (coronary artery disease) SNOMED Code(s): 43333764 ICD Code: I25.10 - ATHSCL HEART DISEASE OF [place] CORONARY ARTERY W/O ANG PCTRS Status: Chronic Priority: Medium Current Visit: Yes Qualifiers: Coronary Disease-Associated Artery/Lesion type: [place] artery [place] vs. transplanted heart: [place] heart Associated angina: without angina Qualified Code(s): I25.10 - Atherosclerotic heart disease of [place] coronary artery without angina pectoris (4) Diabetes SNOMED Code(s): 95189425 ICD Code: E11.9 - TYPE 2 DIABETES MELLITUS WITHOUT COMPLICATIONS Status: Deleted Priority: Low Current Visit: Yes Qualifiers: Diabetes mellitus type: type 2 Diabetes mellitus complication status: without complication Diabetes mellitus intermediate teacher insulin use: without intermediate teacher use Qualified Code(s): E11.9 - Type 2 diabetes mellitus without complications (5) Dehydration SNOMED Code(s): 17312334 ICD Code: E86.0 - DEHYDRATION Status: Acute Priority: High Current Visit: Yes (6) Weakness SNOMED Code(s): 83872961 ICD Code: R53.1 - WEAKNESS Status: Acute Priority: High Current Visit: Yes - Patient Summary/Data Consults: Consultations 12/09/16 10:44 PT Evaluation and Treatment [CONS] Routine - Patient Instructions Diet: Heart Healthy Diet - Discharge Plan Home Medications: Home Meds Aspirin [Dawes Aspirin] 81 mg PO DAILY 07/06/14 [History] Atenolol 25 mg PO DAILY 07/06/14 [History] Chlorthalidone 25 mg PO DAILY 07/06/14 [History] Ramipril [Altace] 10 mg PO DAILY 07/06/14 [History] atorvaSTATin [Lipitor] 10 mg PO DAILY 07/06/14 [History] metFORMIN HCl [Metformin HCl ER] 500 mg PO DAILY 07/06/14 [History] Celecoxib 200 mg PO DAILY 12/08/16 [History] Referrals: [facility] [Outside] Ramana Herrera MD [Ordering Only Provider] - 12/29/16 2:00 pm - Discharge Summary/Plan Comment DC Time >30 min.: Yes Discharge Summary/Plan Comment: 71 yo male who presented to ED on 12/08/16 with 5 days of generalized fatigue and abdominal pain with pmh of CAD with multiple stents and type II diabetes. Patient presented to ED via personal vehicle with cc of feeling more tired with some dizziness for the previous 5 days. He denied any fever, chills, head or neck pain but did have some night sweats. He initally had some diffuse abdominal pain interemittently mostly localized in the epigastric region and right lower quadrant. He denied any chest pain, palpitations, syncope, or focal neurologic deficits in ED. He had some diarrhea when he first became ill but this had resolved by time he presented to ED. Patient had a pmh of CAD with multiple stents and type II diabetes. His home medications were Metformin 500 daily, Lipitor 10 mg daily, Ramipril 10 mg daily , Clorthalidone 25 mg daily, atenolol 25 mg daily, Celecoxib 200 mg daily, and aspirin 81 mg daily. In ED Vital signs were normal and stable. 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 CXR was unremarkable other than heart size upper limit of normal. There was no leukocytosis and patient was afebrile. Patient was hyponatremic 131 with ARF BUN 81 CR 2.4 this was elevated from previous admission on 10/04/15 of BUN 29 and Cr 1.0. Urine was unremarkable. Patient was admitted for generalized weakness, fatigue, and dehydration. Secondary to ARF Metformin, Ramipril, and Chlorthalidone were discontinued on admission. Day 1 of admission: Secondary to diffuse mild abdominal pain and heme neg stool CT of the abdomen without contrast was preformed which showed no acute findings. The patient did have severe prostatomegaly but did have good urine output and bladder scan showed very little residual volume. With normal saline volume resus patient seemed to improve clinically by exam throughout day. Blood culture, Stool cultures, and urine cultures were negative for growth. Influenza A & B was also negative. Protonix IV was given and abdominal pain resolved. Patient did have his only episode of fever of 38.4 that evening but remained afebrile throughout rest of stay. Day 2 of admission: Patient remained afebrile but kidney function did not improve with IVF BUN of 93 and Cr of 2.4. Patient's abdominal pain had resolved. He did have hypotensive 87/51 and rest of BP meds were held. CK was within normal limits and it was felt that patients Celebrex with addition of thiazide may be responsible. Day 3 of admission: FENA was 0.26 % suggesting prerenal, serum osm 310.3. Renal US was grossly unremakable without evidence of hydronephrosis or signficant elevation of renal artery velocities. US was difficult secondary to patient's body habitus. Patient remained hypotensive despite IVF resus of 8 L normal saline with over 2000 L output. Bladder scan was repeated and unremarkable. Kidney function worsened slightly with BUN of 102 and Cr 2.7. Patient did have mild leukocytosis of 11.7 but remained afebrile. Lactate was found to be 3.5. Secondary to worsening kidney function with no clear etiology and hypotension Nephrogist Dr. Berman at [facility] was consulted and recommeded trasfer secondary to possible ATN. All culture results remained negative throughout stay. Levaquin and Vanc were started. - Patient Data Vitals - Most Recent: Last Vital Signs Temp 37.4 C 12/10/16 12:00 Pulse 103 H 12/10/16 12:00 Resp 24 H 12/10/16 12:00 BP 84/47 L 12/10/16 12:00 Pulse Ox 93 L 12/10/16 12:00 Weight - Most Recent: 111.4 kg I&O - Last 24 hours: Intake & Output 12/10/16 12/10/16 12/10/16 06:59 14:59 22:59 Intake Total 2562 1000 Output Total 25 Balance 2537 1000 Lab Results - Last 24 hrs: Laboratory Results - last 24 hr 12/09/16 12/09/16 12/09/16 Range/Units 11:32 16:22 19:00 WBC (4.0-11.0) K/uL RBC (4.50-5.90) M/uL Hgb (13.0-17.0) g/dL Hct (38.0-50.0) % MCV (80.0-98.0) fL MCH (27.0-32.0) pg MCHC (31.0-37.0) g/dL RDW Std Deviation (28.0-62.0) fl RDW Coeff of [place] (11.0-15.0) % Plt Count (150-400) K/uL MPV (7.40-12.00) fL Add Manual Diff Neutrophils % (Manual) (48.0-80.0) % Band Neutrophils % % Lymphocytes % (Manual) (16.0-40.0) % Monocytes % (Manual) (0.0-15.0) % Basophils % (Manual) (0.0-1.5) % Metamyelocytes % % Nucleated RBC % /100WBC Absolute Seg Neuts Band Neutrophils # Lymphocytes # (Manual) Monocytes # (Manual) Basophils # (Manual) Absolute Metamyelocyte Nucleated RBCs # K/uL Lactate (0.20-2.00) mmol/L Sodium (136-146) mmol/L Potassium (3.5-5.1) mmol/L Chloride (98-110) mmol/L Carbon Dioxide (21-31) mmol/L BUN (6.0-23.0) mg/dL Creatinine (0.6-1.5) mg/dL Est Cr Clr Drug Dosing mL/min Estimated GFR (MDRD) ml/min Glucose (60-110) mg/dL POC Glucose 174 H 174 H (60-110) mg/dL Calcium (8.8-10.8) mg/dL Total Bilirubin (0.1-1.5) mg/dL AST (5-40) IU/L ALT (8-54) IU/L Alkaline Phosphatase (40-150) Total Protein (6.0-8.0) g/dL Albumin (3.4-4.8) g/dL Globulin (2.0-3.5) g/dL Albumin/Globulin Ratio (1.3-2.8) Triglycerides (10-190) mg/dL Cholesterol (131-240) mg/dL LDL Cholesterol, Calc (60-180) mg/dL VLDL Cholesterol (5-55) mg/dL HDL Cholesterol (40-80) mg/dL Cholesterol/HDL Ratio (3.3-6.0) Ur Random Creatinine 159.6 mg/dL Ur Random Sodium < 20.0 mmol/L 12/10/16 12/10/16 12/10/16 Range/Units 04:27 04:27 06:23 WBC 11.70 H (4.0-11.0) K/uL RBC 3.84 L (4.50-5.90) M/uL Hgb 11.1 L (13.0-17.0) g/dL Hct 33.3 L (38.0-50.0) % MCV 86.7 (80.0-98.0) fL MCH 28.9 (27.0-32.0) pg MCHC 33.3 (31.0-37.0) g/dL RDW Std Deviation 44.6 (28.0-62.0) fl RDW Coeff of [place] 14 (11.0-15.0) % Plt Count 154 (150-400) K/uL MPV 12.00 (7.40-12.00) fL Add Manual Diff YES Neutrophils % (Manual) 72 (48.0-80.0) % Band Neutrophils % 2 % Lymphocytes % (Manual) 10 L (16.0-40.0) % Monocytes % (Manual) 14 (0.0-15.0) % Basophils % (Manual) 1 (0.0-1.5) % Metamyelocytes % 1 % Nucleated RBC % 0.0 /100WBC Absolute Seg Neuts 8.4 Band Neutrophils # 0.2 Lymphocytes # (Manual) 1.2 Monocytes # (Manual) 1.6 Basophils # (Manual) 0 Absolute Metamyelocyte 0.1 Nucleated RBCs # 0 K/uL Lactate (0.20-2.00) mmol/L Sodium 131 L (136-146) mmol/L Potassium 4.4 (3.5-5.1) mmol/L Chloride 103 (98-110) mmol/L Carbon Dioxide 15 L (21-31) mmol/L BUN 102 H (6.0-23.0) mg/dL Creatinine 2.7 H (0.6-1.5) mg/dL Est Cr Clr Drug Dosing 22.43 mL/min Estimated GFR (MDRD) 23.3 ml/min Glucose 213 H (60-110) mg/dL POC Glucose 215 H (60-110) mg/dL Calcium 7.3 L (8.8-10.8) mg/dL Total Bilirubin 0.7 (0.1-1.5) mg/dL AST 23 (5-40) IU/L ALT 32 (8-54) IU/L Alkaline Phosphatase 38 L (40-150) Total Protein 4.0 L (6.0-8.0) g/dL Albumin 2.1 L (3.4-4.8) g/dL Globulin 1.9 L (2.0-3.5) g/dL Albumin/Globulin Ratio 1.1 L (1.3-2.8) Triglycerides 336 H (10-190) mg/dL Cholesterol 88 L (131-240) mg/dL LDL Cholesterol, Calc 12 L (60-180) mg/dL VLDL Cholesterol 67 H (5-55) mg/dL HDL Cholesterol < 9 L (40-80) mg/dL Cholesterol/HDL Ratio 9.0 H (3.3-6.0) Ur Random Creatinine mg/dL Ur Random Sodium mmol/L 12/10/16 12/10/16 Range/Units 11:19 13:00 WBC (4.0-11.0) K/uL RBC (4.50-5.90) M/uL Hgb (13.0-17.0) g/dL Hct (38.0-50.0) % MCV (80.0-98.0) fL MCH (27.0-32.0) pg MCHC (31.0-37.0) g/dL RDW Std Deviation (28.0-62.0) fl RDW Coeff of [place] (11.0-15.0) % Plt Count (150-400) K/uL MPV (7.40-12.00) fL Add Manual Diff Neutrophils % (Manual) (48.0-80.0) % Band Neutrophils % % Lymphocytes % (Manual) (16.0-40.0) % Monocytes % (Manual) (0.0-15.0) % Basophils % (Manual) (0.0-1.5) % Metamyelocytes % % Nucleated RBC % /100WBC Absolute Seg Neuts Band Neutrophils # Lymphocytes # (Manual) Monocytes # (Manual) Basophils # (Manual) Absolute Metamyelocyte Nucleated RBCs # K/uL Lactate 3.5 H (0.20-2.00) mmol/L Sodium (136-146) mmol/L Potassium (3.5-5.1) mmol/L Chloride (98-110) mmol/L Carbon Dioxide (21-31) mmol/L BUN (6.0-23.0) mg/dL Creatinine (0.6-1.5) mg/dL Est Cr Clr Drug Dosing mL/min Estimated GFR (MDRD) ml/min Glucose (60-110) mg/dL POC Glucose 203 H (60-110) mg/dL Calcium (8.8-10.8) mg/dL Total Bilirubin (0.1-1.5) mg/dL AST (5-40) IU/L ALT (8-54) IU/L Alkaline Phosphatase (40-150) Total Protein (6.0-8.0) g/dL Albumin (3.4-4.8) g/dL Globulin (2.0-3.5) g/dL Albumin/Globulin Ratio (1.3-2.8) Triglycerides (10-190) mg/dL Cholesterol (131-240) mg/dL LDL Cholesterol, Calc (60-180) mg/dL VLDL Cholesterol (5-55) mg/dL HDL Cholesterol (40-80) mg/dL Cholesterol/HDL Ratio (3.3-6.0) Ur Random Creatinine mg/dL Ur Random Sodium mmol/L JACQUELINE Results - Last 24 hrs: Microbiology 12/08/16 08:35 Stool Culture - Final Stool / Feces - Stool, Liquid NO SALMONELLA, SHIGELLA,OR E.COLI O157 ISOLATED Campylobacter Antigen Assay - Final NEGATIVE CAMPYLOBACTER AG - Final NEGATIVE FOR SHIGA TOXIN 1 - Final NEGATIVE FOR SHIGA TOXIN 2 12/08/16 23:05 Urine Culture - Final Urine, Midstream MIXED XU 10,000-100,000 CFU/ML 12/08/16 21:31 Aerobic Blood Culture - Preliminary Blood - Venous - Lab Draw NO GROWTH AFTER 1 DAY Anaerobic Blood Culture - Preliminary NO GROWTH AFTER 1 DAY 12/08/16 21:23 Aerobic Blood Culture - Preliminary Blood - Venous NO GROWTH AFTER 1 DAY Anaerobic Blood Culture - Preliminary NO GROWTH AFTER 1 DAY Med Orders - Current: Current Medications Acetaminophen (Tylenol) 650 mg PO Q4H PRN PRN Reason: Pain (Mild 1-3)/fever Last Admin: 12/09/16 20:33 Dose: 650 mg Atorvastatin Calcium (Lipitor) 10 mg PO DAILY [facility] Last Admin: 12/10/16 08:42 Dose: 10 mg Heparin Sodium (Porcine) (Heparin Sodium) 5,000 units SUBCUT Q12HR [facility] Last Admin: 12/10/16 08:42 Dose: 5,000 units Sodium Chloride (Normal Saline) 1,000 mls @ 125 mls/hr IV ASDIRECTED [facility] Last Admin: 12/10/16 08:38 Dose: 125 mls/hr Vancomycin HCl 1,500 mg/ (Sodium Chloride) 500 mls @ 333.333 mls/hr IV Q24H [facility] Insulin Aspart (Novolog) 0 unit SUBCUT TIDAC [facility] PRN Reason: Protocol Last Admin: 12/10/16 12:19 Dose: 2 unit Ondansetron HCl (Zofran Odt) 4 mg PO Q4H PRN PRN Reason: nausea, able to take PO Vancomycin HCl (Pharmacy To Dose - Vancomycin) 1 dose .XX ASDIRECTED [facility] Discontinued Medications Aspirin (Aspirin) 81 mg PO DAILY [facility] Last Admin: 12/10/16 08:42 Dose: 81 mg Atenolol (Tenormin) 25 mg PO DAILY [facility] Last Admin: 12/09/16 08:25 Dose: 25 mg Sodium Chloride (Normal Saline) 500 mls @ 999 mls/hr IV .BOLUS [facility] Sodium Chloride (Normal Saline) 1,000 mls @ 999 mls/hr IV ASDIRECTED [facility] Last Admin: 12/08/16 06:40 Dose: 999 mls/hr Pantoprazole Sodium 80 mg/ (Sodium Chloride) 100 mls @ 10 mls/hr IV Q10H [facility] Last Admin: 12/08/16 10:03 Dose: 10 mls/hr Sodium Chloride (Normal Saline) 250 mls @ 250 mls/hr IV .BOLUS [facility] Last Admin: 12/10/16 00:18 Dose: 250 mls/hr Levofloxacin/Dextrose 750 mg/ (Premix) 150 mls @ 100 mls/hr IV ONETIME ONE Stop: 12/10/16 15:29 Last Admin: 12/10/16 14:09 Dose: 100 mls/hr Morphine Sulfate (Morphine) 2 mg IVPUSH Q2H PRN PRN Reason: Pain (severe 7-10) Stop: 12/09/16 09:04 Ramipril (Altace) 10 mg PO DAILY [facility] Tamsulosin HCl (Flomax) 0.4 mg PO ONETIME ONE Stop: 12/09/16 11:43 Last Admin: 12/09/16 12:11 Dose: 0.4 mg Tamsulosin HCl (Flomax) 0.4 mg PO BEDTIME [facility] Last Admin: 12/09/16 20:33 Dose: 0.4 mg Original Note: Discharge Summary - Hospital Course HPI Initial Comments: 71 yo male who presented to ED on 12/08/16 with 5 days of generalized fatigue and abdominal pain with pmh of CAD with multiple stents and type II diabetes. Brief History: Patient presented to ED via personal vehicle with cc of feeling more tired with some dizziness for the previous 5 days. He denied any fever, chills, head or neck pain but did have some night sweats. He initally had some diffuse abdominal pain interemittently mostly localized in the epigastric region and right lower quadrant. He denied any chest pain, palpitations, syncope, or focal neurologic deficits in ED. He had some diarrhea when he first became ill but this had resolved by time he presented to ED. Patient had a pmh of CAD with multiple stents and type II diabetes. His home medications were Metformin 500 daily, Lipitor 10 mg daily, Ramipril 10 mg daily, Clorthalidone 25 mg daily, atenolol 25 mg daily, Celecoxib 200 mg daily, and aspirin 81 mg daily - Discharge Data Discharge Date: 12/10/16 Discharge Disposition: DC/Tfer to Other 70 Condition: Fair - Discharge Diagnosis/Problem(s) (1) Renal insufficiency SNOMED Code(s): 601286935, 911887529 ICD Code: N28.9 - DISORDER OF KIDNEY AND URETER, UNSPECIFIED Status: Acute Priority: High Current Visit: Yes (2) Abdominal pain SNOMED Code(s): 09473073 ICD Code: R10.9 - UNSPECIFIED ABDOMINAL PAIN Status: Resolved Priority: Medium Current Visit: Yes Qualifiers: Abdominal location: right lower quadrant Qualified Code(s): R10.31 - Right lower quadrant pain (3) CAD (coronary artery disease) SNOMED Code(s): 41837458 ICD Code: I25.10 - ATHSCL HEART DISEASE OF [place] CORONARY ARTERY W/O ANG PCTRS Status: Chronic Priority: Medium Current Visit: Yes Qualifiers: Coronary Disease-Associated Artery/Lesion type: [place] artery [place] vs. transplanted heart: [place] heart Associated angina: without angina Qualified Code(s): I25.10 - Atherosclerotic heart disease of [place] coronary artery without angina pectoris (4) Diabetes SNOMED Code(s): 92203325 ICD Code: E11.9 - TYPE 2 DIABETES MELLITUS WITHOUT COMPLICATIONS Status: Deleted Priority: Low Current Visit: Yes Qualifiers: Diabetes mellitus type: type 2 Diabetes mellitus complication status: without complication Diabetes mellitus residential insulin use: without residential use Qualified Code(s): E11.9 - Type 2 diabetes mellitus without complications (5) Dehydration SNOMED Code(s): 03219287 ICD Code: E86.0 - DEHYDRATION Status: Acute Priority: High Current Visit: Yes (6) Weakness SNOMED Code(s): 98570545 ICD Code: R53.1 - WEAKNESS Status: Acute Priority: High Current Visit: Yes - Patient Summary/Data Consults: Consultations 12/09/16 10:44 PT Evaluation and Treatment [CONS] Routine Hospital Course: 71 yo male who presented to ED on 12/08/16 with 5 days of generalized fatigue and abdominal pain with pmh of CAD with multiple stents and type II diabetes. Patient presented to ED via personal vehicle with cc of feeling more tired with some dizziness for the previous 5 days. He denied any fever, chills, head or neck pain but did have some night sweats. He initally had some diffuse abdominal pain interemittently mostly localized in the epigastric region and right lower quadrant. He denied any chest pain, palpitations, syncope, or focal neurologic deficits in ED. He had some diarrhea when he first became ill but this had resolved by time he presented to ED. Patient had a pmh of CAD with multiple stents and type II diabetes. His home medications were Metformin 500 daily, Lipitor 10 mg daily, Ramipril 10 mg daily , Clorthalidone 25 mg daily, atenolol 25 mg daily, Celecoxib 200 mg daily, and aspirin 81 mg daily. In ED Vital signs were normal and stable. 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 CXR was unremarkable other than heart size upper limit of normal. There was no leukocytosis and patient was afebrile. Patient was hyponatremic 131 with ARF BUN 81 CR 2.4 this was elevated from previous admission on 10/04/15 of BUN 29 and Cr 1.0. Urine was unremarkable. Patient was admitted for generalized weakness, fatigue, and dehydration. Secondary to ARF Metformin, Ramipril, and Chlorthalidone were discontinued on admission. Day 1 of admission: Secondary to diffuse mild abdominal pain and heme neg stool CT of the abdomen without contrast was preformed which showed no acute findings. The patient did have severe prostatomegaly but did have good urine output and bladder scan showed very little residual volume. With normal saline volume resus patient seemed to improve clinically by exam throughout day. Blood culture, Stool cultures, and urine cultures were negative for growth. Influenza A & B was also negative. Protonix IV was given and abdominal pain resolved. Patient did have his only episode of fever of 38.4 that evening but remained afebrile throughout rest of stay. Day 2 of admission: Patient remained afebrile but kidney function did not improve with IVF BUN of 93 and Cr of 2.4. Patient's abdominal pain had resolved. He did have hypotensive 87/51 and rest of BP meds were held. CK was within normal limits and it was felt that patients Celebrex with addition of thiazide may be responsible. - Patient Instructions Diet: Heart Healthy Diet - Discharge Plan Home Medications: Home Meds Aspirin [Dawes Aspirin] 81 mg PO DAILY 07/06/14 [History] Atenolol 25 mg PO DAILY 07/06/14 [History] Chlorthalidone 25 mg PO DAILY 07/06/14 [History] Ramipril [Altace] 10 mg PO DAILY 07/06/14 [History] atorvaSTATin [Lipitor] 10 mg PO DAILY 07/06/14 [History] metFORMIN HCl [Metformin HCl ER] 500 mg PO DAILY 07/06/14 [History] Celecoxib 200 mg PO DAILY 12/08/16 [History] Referrals: [facility] [Outside] Ramana Herrera MD [Ordering Only Provider] - 12/29/16 2:00 pm - Discharge Summary/Plan Comment DC Time >30 min.: Yes Discharge Summary/Plan Comment: 71 yo male who presented to ED on 12/08/16 with 5 days of generalized fatigue and abdominal pain with pmh of CAD with multiple stents and type II diabetes. Patient presented to ED via personal vehicle with cc of feeling more tired with some dizziness for the previous 5 days. He denied any fever, chills, head or neck pain but did have some night sweats. He initally had some diffuse abdominal pain interemittently mostly localized in the epigastric region and right lower quadrant. He denied any chest pain, palpitations, syncope, or focal neurologic deficits in ED. He had some diarrhea when he first became ill but this had resolved by time he presented to ED. Patient had a pmh of CAD with multiple stents and type II diabetes. His home medications were Metformin 500 daily, Lipitor 10 mg daily, Ramipril 10 mg daily , Clorthalidone 25 mg daily, atenolol 25 mg daily, Celecoxib 200 mg daily, and aspirin 81 mg daily. In ED Vital signs were normal and stable. 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 CXR was unremarkable other than heart size upper limit of normal. There was no leukocytosis and patient was afebrile. Patient was hyponatremic 131 with ARF BUN 81 CR 2.4 this was elevated from previous admission on 10/04/15 of BUN 29 and Cr 1.0. Urine was unremarkable. Patient was admitted for generalized weakness, fatigue, and dehydration. Secondary to ARF Metformin, Ramipril, and Chlorthalidone were discontinued on admission. Day 1 of admission: Secondary to diffuse mild abdominal pain and heme neg stool CT of the abdomen without contrast was preformed which showed no acute findings. The patient did have severe prostatomegaly but did have good urine output and bladder scan showed very little residual volume. With normal saline volume resus patient seemed to improve clinically by exam throughout day. Blood culture, Stool cultures, and urine cultures were negative for growth. Influenza A & B was also negative. Protonix IV was given and abdominal pain resolved. Patient did have his only episode of fever of 38.4 that evening but remained afebrile throughout rest of stay. Day 2 of admission: Patient remained afebrile but kidney function did not improve with IVF BUN of 93 and Cr of 2.4. Patient's abdominal pain had resolved. He did have hypotensive 87/51 and rest of BP meds were held. CK was within normal limits and it was felt that patients Celebrex with addition of thiazide may be responsible. - Patient Data Vitals - Most Recent: Last Vital Signs Temp 37.4 C 12/10/16 12:00 Pulse 103 H 12/10/16 12:00 Resp 24 H 12/10/16 12:00 BP 84/47 L 12/10/16 12:00 Pulse Ox 93 L 12/10/16 12:00 Weight - Most Recent: 111.4 kg I&O - Last 24 hours: Intake & Output 12/10/16 12/10/16 12/10/16 06:59 14:59 22:59 Intake Total 2562 1000 Output Total 25 Balance 2537 1000 Lab Results - Last 24 hrs: Laboratory Results - last 24 hr 12/09/16 12/09/16 12/09/16 Range/Units 11:32 16:22 19:00 WBC (4.0-11.0) K/uL RBC (4.50-5.90) M/uL Hgb (13.0-17.0) g/dL Hct (38.0-50.0) % MCV (80.0-98.0) fL MCH (27.0-32.0) pg MCHC (31.0-37.0) g/dL RDW Std Deviation (28.0-62.0) fl RDW Coeff of [place] (11.0-15.0) % Plt Count (150-400) K/uL MPV (7.40-12.00) fL Add Manual Diff Neutrophils % (Manual) (48.0-80.0) % Band Neutrophils % % Lymphocytes % (Manual) (16.0-40.0) % Monocytes % (Manual) (0.0-15.0) % Basophils % (Manual) (0.0-1.5) % Metamyelocytes % % Nucleated RBC % /100WBC Absolute Seg Neuts Band Neutrophils # Lymphocytes # (Manual) Monocytes # (Manual) Basophils # (Manual) Absolute Metamyelocyte Nucleated RBCs # K/uL Lactate (0.20-2.00) mmol/L Sodium (136-146) mmol/L Potassium (3.5-5.1) mmol/L Chloride (98-110) mmol/L Carbon Dioxide (21-31) mmol/L BUN (6.0-23.0) mg/dL Creatinine (0.6-1.5) mg/dL Est Cr Clr Drug Dosing mL/min Estimated GFR (MDRD) ml/min Glucose (60-110) mg/dL POC Glucose 174 H 174 H (60-110) mg/dL Calcium (8.8-10.8) mg/dL Total Bilirubin (0.1-1.5) mg/dL AST (5-40) IU/L ALT (8-54) IU/L Alkaline Phosphatase (40-150) Total Protein (6.0-8.0) g/dL Albumin (3.4-4.8) g/dL Globulin (2.0-3.5) g/dL Albumin/Globulin Ratio (1.3-2.8) Triglycerides (10-190) mg/dL Cholesterol (131-240) mg/dL LDL Cholesterol, Calc (60-180) mg/dL VLDL Cholesterol (5-55) mg/dL HDL Cholesterol (40-80) mg/dL Cholesterol/HDL Ratio (3.3-6.0) Ur Random Creatinine 159.6 mg/dL Ur Random Sodium < 20.0 mmol/L 12/10/16 12/10/1612/10/17 Range/Units 04:27 04:27 06:23 WBC 11.70 H (4.0-11.0) K/uL RBC 3.84 L (4.50-5.90) M/uL Hgb 11.1 L (13.0-17.0) g/dL Hct 33.3 L (38.0-50.0) % MCV 86.7 (80.0-98.0) fL MCH 28.9 (27.0-32.0) pg MCHC 33.3 (31.0-37.0) g/dL RDW Std Deviation 44.6 (28.0-62.0) fl RDW Coeff of Jesenia 14 (11.0-15.0) % Plt Count 154 (150-400) K/uL MPV 12.00 (7.40-12.00) fL Add Manual Diff YES Neutrophils % (Manual) 72 (48.0-80.0) % Band Neutrophils % 2 % Lymphocytes % (Manual) 10 L (16.0-40.0) % Monocytes % (Manual) 14 (0.0-15.0) % Basophils % (Manual) 1 (0.0-1.5) % Metamyelocytes % 1 % Nucleated RBC % 0.0 /100WBC Absolute Seg Neuts 8.4 Band Neutrophils # 0.2 Lymphocytes # (Manual) 1.2 Monocytes # (Manual) 1.6 Basophils # (Manual) 0 Absolute Metamyelocyte 0.1 Nucleated RBCs # 0 K/uL Lactate (0.20-2.00) mmol/L Sodium 131 L (136-146) mmol/L Potassium 4.4 (3.5-5.1) mmol/L Chloride 103 (98-110) mmol/L Carbon Dioxide 15 L (21-31) mmol/L BUN 102 H (6.0-23.0) mg/dL Creatinine 2.7 H (0.6-1.5) mg/dL Est Cr Clr Drug Dosing 22.43 mL/min Estimated GFR (MDRD) 23.3 ml/min Glucose 213 H (60-110) mg/dL POC Glucose 215 H (60-110) mg/dL Calcium 7.3 L (8.8-10.8) mg/dL Total Bilirubin 0.7 (0.1-1.5) mg/dL AST 23 (5-40) IU/L ALT 32 (8-54) IU/L Alkaline Phosphatase 38 L (40-150) Total Protein 4.0 L (6.0-8.0) g/dL Albumin 2.1 L (3.4-4.8) g/dL Globulin 1.9 L (2.0-3.5) g/dL Albumin/Globulin Ratio 1.1 L (1.3-2.8) Triglycerides 336 H (10-190) mg/dL Cholesterol 88 L (131-240) mg/dL LDL Cholesterol, Calc 12 L (60-180) mg/dL VLDL Cholesterol 67 H (5-55) mg/dL HDL Cholesterol < 9 L (40-80) mg/dL Cholesterol/HDL Ratio 9.0 H (3.3-6.0) Ur Random Creatinine mg/dL Ur Random Sodium mmol/L 12/10/16 12/10/16 Range/Units 11:19 13:00 WBC (4.0-11.0) K/uL RBC (4.50-5.90) M/uL Hgb (13.0-17.0) g/dL Hct (38.0-50.0) % MCV (80.0-98.0) fL MCH (27.0-32.0) pg MCHC (31.0-37.0) g/dL RDW Std Deviation (28.0-62.0) fl RDW Coeff of Jesenia (11.0-15.0) % Plt Count (150-400) K/uL MPV (7.40-12.00) fL Add Manual Diff Neutrophils % (Manual) (48.0-80.0) % Band Neutrophils % % Lymphocytes % (Manual) (16.0-40.0) % Monocytes % (Manual) (0.0-15.0) % Basophils % (Manual) (0.0-1.5) % Metamyelocytes % % Nucleated RBC % /100WBC Absolute Seg Neuts Band Neutrophils # Lymphocytes # (Manual) Monocytes # (Manual) Basophils # (Manual) Absolute Metamyelocyte Nucleated RBCs # K/uL Lactate 3.5 H (0.20-2.00) mmol/L Sodium (136-146) mmol/L Potassium (3.5-5.1) mmol/L Chloride (98-110) mmol/L Carbon Dioxide (21-31) mmol/L BUN (6.0-23.0) mg/dL Creatinine (0.6-1.5) mg/dL Est Cr Clr Drug Dosing mL/min Estimated GFR (MDRD) ml/min Glucose (60-110) mg/dL POC Glucose 203 H (60-110) mg/dL Calcium (8.8-10.8) mg/dL Total Bilirubin (0.1-1.5) mg/dL AST (5-40) IU/L ALT (8-54) IU/L Alkaline Phosphatase (40-150) Total Protein (6.0-8.0) g/dL Albumin (3.4-4.8) g/dL Globulin (2.0-3.5) g/dL Albumin/Globulin Ratio (1.3-2.8) Triglycerides (10-190) mg/dL Cholesterol (131-240) mg/dL LDL Cholesterol, Calc (60-180) mg/dL VLDL Cholesterol (5-55) mg/dL HDL Cholesterol (40-80) mg/dL Cholesterol/HDL Ratio (3.3-6.0) Ur Random Creatinine mg/dL Ur Random Sodium mmol/L JACQUELINE Results - Last 24 hrs: Microbiology 12/08/16 08:35 Stool Culture - Final Stool / Feces - Stool, Liquid NO SALMONELLA, SHIGELLA,OR E.COLI O157 ISOLATED Campylobacter Antigen Assay - Final NEGATIVE CAMPYLOBACTER AG - Final NEGATIVE FOR SHIGA TOXIN 1 - Final NEGATIVE FOR SHIGA TOXIN 2 12/08/16 23:05 Urine Culture - Final Urine, Midstream MIXED XU 10,000-100,000 CFU/ML 12/08/16 21:31 Aerobic Blood Culture - Preliminary Blood - Venous - Lab Draw NO GROWTH AFTER 1 DAY Anaerobic Blood Culture - Preliminary NO GROWTH AFTER 1 DAY 12/08/16 21:23 Aerobic Blood Culture - Preliminary Blood - Venous NO GROWTH AFTER 1 DAY Anaerobic Blood Culture - Preliminary NO GROWTH AFTER 1 DAY Med Orders - Current: Current Medications Acetaminophen (Tylenol) 650 mg PO Q4H PRN PRN Reason: Pain (Mild 1-3)/fever Last Admin: 12/09/16 20:33 Dose: 650 mg Atorvastatin Calcium (Lipitor) 10 mg PO DAILY [facility] Last Admin: 12/10/16 08:42 Dose: 10 mg Heparin Sodium (Porcine) (Heparin Sodium) 5,000 units SUBCUT Q12HR [facility] Last Admin: 12/10/16 08:42 Dose: 5,000 units Sodium Chloride (Normal Saline) 1,000 mls @ 125 mls/hr IV ASDIRECTED [facility] Last Admin: 12/10/16 08:38 Dose: 125 mls/hr Levofloxacin/Dextrose 750 mg/ (Premix) 150 mls @ 100 mls/hr IV ONETIME ONE Stop: 12/10/16 15:29 Last Admin: 12/10/16 14:09 Dose: 100 mls/hr Vancomycin HCl 1,500 mg/ (Sodium Chloride) 500 mls @ 333.333 mls/hr IV Q24H [facility] Insulin Aspart (Novolog) 0 unit SUBCUT TIDAC [facility] PRN Reason: Protocol Last Admin: 12/10/16 12:19 Dose: 2 unit Ondansetron HCl (Zofran Odt) 4 mg PO Q4H PRN PRN Reason: nausea, able to take PO Vancomycin HCl (Pharmacy To Dose - Vancomycin) 1 dose .XX ASDIRECTED [facility] Discontinued Medications Aspirin (Aspirin) 81 mg PO DAILY [facility] Last Admin: 12/10/16 08:42 Dose: 81 mg Atenolol (Tenormin) 25 mg PO DAILY [facility] Last Admin: 12/09/16 08:25 Dose: 25 mg Sodium Chloride (Normal Saline) 500 mls @ 999 mls/hr IV .BOLUS [facility] Sodium Chloride (Normal Saline) 1,000 mls @ 999 mls/hr IV ASDIRECTED [facility] Last Admin: 12/08/16 06:40 Dose: 999 mls/hr Pantoprazole Sodium 80 mg/ (Sodium Chloride) 100 mls @ 10 mls/hr IV Q10H [facility] Last Admin: 12/08/16 10:03 Dose: 10 mls/hr Sodium Chloride (Normal Saline) 250 mls @ 250 mls/hr IV .BOLUS [facility] Last Admin: 12/10/16 00:18 Dose: 250 mls/hr Morphine Sulfate (Morphine) 2 mg IVPUSH Q2H PRN PRN Reason: Pain (severe 7-10) Stop: 12/09/16 09:04 Ramipril (Altace) 10 mg PO DAILY [facility] Tamsulosin HCl (Flomax) 0.4 mg PO ONETIME ONE Stop: 12/09/16 11:43 Last Admin: 12/09/16 12:11 Dose: 0.4 mg Tamsulosin HCl (Flomax) 0.4 mg PO BEDTIME [facility] Last Admin: 12/09/16 20:33 Dose: 0.4 mg *Q Meaningful Use (DIS) - VTE *Q VTE Criteria *Q: - Stroke *Q Stroke Criteria *Q: - AMI *Q AMI Criteria *Q:
== END 2016-12-10 14:50 | disposition other institution (70) | DRG 684 ==
LOC: MW.ED 05:47 → OBSVTOIN 06:57 → MW.MS 06:57
PROVIDERS: ADMIT Internal Medicine; ATTEND Internal Medicine
DX: N17.9 Acute kidney failure, unspecified (principal); I25.10 Atherosclerotic heart disease of native coronary artery without angina pectoris; E11.65 Type 2 diabetes mellitus with hyperglycemia; Z79.84 Long term (current) use of oral hypoglycemic drugs; Z79.82 Long term (current) use of aspirin; R10.31 Right lower quadrant pain; E86.0 Dehydration; R53.1 Weakness; I95.9 Hypotension, unspecified; Z95.5 Presence of coronary angioplasty implant and graft; Z79.4 Long term (current) use of insulin; Z88.0 Allergy status to penicillin; I25.2 Old myocardial infarction; E78.00 Pure hypercholesterolemia, unspecified
CPT/HCPCS: 36415; 36600; 51703; 70450; 70450-26; 71010; 71010-26; 74176; 74176-26; 76775; 76775-26; 80053; 80061; 81001; 82140; 82272; 82550; 82553; 82570; 82803; 82962; 83036; 83605; 83735; 84100; 84300; 84484; 85025; 85999; 87040; 87046; 87086; 87804; 87899; 93005; 93975; 93975-26; 96360; 97161-GP; 99285; 99285-25; A9270-GY; C9113; G0378; J1644; J1815-GY; J1956; J7030; J7040